=== PATIENT | male | born 1970 | race Hispanic/Latino ===

== ENCOUNTER 2017-12-04 04:14 | Inpatient (IN) | payer OTHER, SELFPAY ==
[2017-12-04] MEDS ORDERED: Fentanyl 100 MCG/2 ML VIAL ONE ×4 (04:20→11:27)
[2017-12-04] MEDS ORDERED: Ondansetron HCl/PF 4 MG/2 ML Vial ONE ×3 (04:20→13:23)
[2017-12-04] MEDS ORDERED: Adacel (T-DAP) 0.5 ML VIAL ONE (04:27)
[2017-12-04] MEDS ORDERED: CEFAZOLIN/Water 2 GM/20 ML SYRINGE SLOW IVP SCH ×2 (04:30→08:15)
[2017-12-04 04:50] LABS: Prothrombin Time 13.6 SEC (12.0-14.7)
[2017-12-04 04:55] LABS: Hemoglobin 14.4 g/dL (14.0-18.0); Mean Corpuscular HGB CONC 34.6 g/dL (32.0-36.0); Mean Corpuscular Hemoglobin 31.4 pg (27.0-31.0); Mean Corpuscular Volume 90.8 fL (78.0-98.0); Mean Platelet Volume 8.5 fL (7.4-10.4); Platelet Count 224 thou/uL (130-400); RBC Distribution Width 11.7 % (11.5-14.5); White Blood Cell (WBC) Count 35.8 thou/uL (4.8-10.8)
[2017-12-04 04:58] LABS: ALT (SGPT) 67 U/L (8-55); AST (SGOT) 81 U/L (5-34); Alcohol Less than 10 mg/dL (Less than 10); Alkaline Phosphatase 98 U/L (40-150); Anion Gap 15 mmol/L (10-20); BUN (Urea Nitrogen) 20 mg/dL (8.9-20.6); Bilirubin, Total 0.6 mg/dL (0.2-1.2); Calc. Creatinine Clearance 0 mL/min (70-130); Calcium 8.4 mg/dL (7.8-10.44); Carbon Dioxide 21 mmol/L (22-29); Chloride 103 mmol/L (98-107); Estimated GFR-MDRD 59; Globulin 2.9 g/dL (2.4-3.5); Glucose 156 mg/dL (70-105); Lipase 118 U/L (8-78); Potassium 3.4 mmol/L (3.5-5.1); Protein, Total 6.9 g/dL (6.0-8.3); Sodium 136 mmol/L (136-145)
[2017-12-04 05:14] LABS: PTT 22.2 SEC (22.9-36.1)
[2017-12-04] MEDS ORDERED: Ondansetron HCl/PF 4 MG/2 ML Vial IVP PRN ×2 (05:15→11:58)
[2017-12-04] MEDS ORDERED: diphenhydrAMINE 50 MG/ML VIAL IVP PRN (05:15)
[2017-12-04] MEDS ORDERED: diphenhydrAMINE 50 MG/ML VIAL IM PRN (05:15)
[2017-12-04] MEDS ORDERED: Communication Order-Pharmacy FS SCH (05:15)
[2017-12-04] MEDS ORDERED: Naloxone HCl 0.4 mg/ml Vial IV PRN (05:15)
[2017-12-04] MEDS ORDERED: Promethazine HCl 25 MG/ML VIAL IM PRN ×2 (05:15→11:58)
[2017-12-04] MEDS ORDERED: Dextrose 50% Abboject 50 ML SYRINGE SLOW IVP PRN (05:16)
[2017-12-04] MEDS ORDERED: Dextrose 5% in Water 1,000 ML IV PRN (05:16)
[2017-12-04 05:24] LABS: Band 25 % (5-11); Elliptocytes SLIGHT = 2-5 cells (100X) (0-1/hpf); Lymphocytes 11 % (21-51); MDiff Complete? YES; Metamyelocyte 1 % (0-0); Monocytes 3 % (0-10); Myelocyte 1 % (0-0); Neutrophil 59 % (42-75); PLT Morphology Comment Appears Adequate
[2017-12-04 06:02] LABS: Bilirubin Negative (Negative); Blood, Urine Large (Negative); Clarity CLEAR (Clear); Glucose, Urine (Dipstick) Negative (Negative); Leukocyte Negative (Negative); Nitrite Negative (Negative); Protein, Urine (Dipstick) 30 mg/dL (Neg-Trace); Urobilinogen 0.2 mg/dL (0.2-1.0)
[2017-12-04 06:04] LABS: Bacteria/HPF None Seen HPF (None Seen); Hyaline Casts/LPF 4-6 HYALINE CAST LPF (0-3 Hyaline); Pathc Cast-AUWi Flag 0.58 (0-2.49); RBC/HPF GREATER THAN 50-TNTC HPF (0-3)
[2017-12-04 06:07] LABS: Oval Fat Bodies/HPF None Seen HPF (None Seen); Renal Epithelial 0-3 HPF (0-3); Specific Gravity, Urine 1.052 (1.002-1.036); Sperm/HPF None Seen HPF (None Seen); Transitional Epithelial 0-3 HPF (0-3); Trichomonas/HPF None Seen HPF (None Seen); Yeast-All Forms None Seen HPF (None Seen)
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
[2017-12-04] MEDS: Ketorolac Tromethamine 30 MG/ML VIAL IVP SCH ×3 (07:16→17:45)
[2017-12-04 08:32] VITALS: BMI 30.7
[2017-12-04] MEDS ORDERED: CEFAZOLIN/Water 2 GM/20 ML SYRINGE ONE (09:00)
[2017-12-04] MEDS ORDERED: Midazolam HCl 2 mg/2 ml Vial ONE (09:05)
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
--- NOTE | 2017-12-04 09:52 | RAD ---
LEFT FOOT 3 VIEWS: HISTORY: Injury, left foot pain. FINDINGS/IMPRESSION: There is a fracture involving the shaft of the proximal phalanx of the 5th digit/little toe without s ignificant displacement. Also noted is a fracture of the medial malleolus. POS: [facility]
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
[2017-12-04] MEDS ORDERED: Promethazine HCl 25 MG/ML VIAL SLOW IVP PRN (11:58)
[2017-12-04] MEDS ORDERED: HYDROcodone/Acetaminophen 10/325 mg Tablet PO PRN ×2 (12:00)
[2017-12-04] MEDS ORDERED: PROPOFOL 200 MG/20 ML VIAL ONE (13:23)
[2017-12-04] MEDS ORDERED: Glycopyrrolate 0.2 MG/ML 5 ML SYRINGE ONE (13:23)
[2017-12-04] MEDS ORDERED: Vecuronium 10 MG VIAL ONE (13:23)
[2017-12-04] MEDS ORDERED: Lidocaine 1% PF 5 ML VIAL ONE (13:23)
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
[2017-12-04] MEDS ORDERED: ISOVUE-370 76%-LOCM 1 ML ONE (14:54)
--- NOTE | 2017-12-04 15:10 | OP ---
PREOPERATIVE DIAGNOSES: Closed intercondylar and supracondylar femur fracture, open incomplete tibia fracture, closed medial malleolus fracture, all on the left. PROCEDURE: Irrigation and debridement of open tibia fracture on the left, open reduction and interna l fixation of left supracondylar and intercondylar femur using a Synthes variable angle locking plate 10-hole and ORIF of the medial malleolus also on the left side. SURGEON: Wes Mandel M.D. PRODUCTION REPAIRER: Jack Blank PA-C. BLOOD LOSS: About 400. SPECIMENS: None. DRAINS: None. COMPLICATIONS: None. PROCEDURE IN DETAIL: The patient was taken to the operating room where general anesthesia induced. The left leg was prepped and draped in usual sterile fashion from the hip through the toes to approac h the open fracture first, it appeared to be an outside in penetration which would disrupted the evelia ex of the tibia. Tibia was cleaned with curets. I debrided skin and subcutaneous tissue sharply wit h a knife. This was left open with plans for wound VAC and secondary closure. I made a lateral appr oach to the femur. The joint was exposed. I irrigated the joint and the fracture. The fracture spl it the condyle and comminuted the lateral condyle. The lateral condyle was repaired using headless s crews and the condyles were reduced together and fixed using a single 7.3 mm cannulated cancellous sc rew. I then applied a 10-hole lateral plate. The middle comminution was so severe. There was reall y no way fragments together, so I span the fracture. I placed 5 cortical screws above the frac ture and 5 locking screws in the articular fragment. Pulsatile lavage was performed. Fascia was rep aired with a #2 Stratafix . Skin was closed with johnathan. Attention was turned to the medial m alleolus where small incisions were made. Two guide pins were placed across the fracture. Fracture was repaired with 4-0 Synthes cannulated screws with anatomic reduction and good compression. Irriga tion performed. Skin was closed with johnathan. Sterile dressings applied. The patient was placed in knee immobilizer. Postoperative plans are for IV antibiotics. A knee immobilizer will be nonweightbearing on the left side for at least 3 months, wound VAC for the left tibia.
[2017-12-04] MEDS: Lactated Ringer's 1,000 ML IV SCH ×2 (17:35→17:46)
--- NOTE | 2017-12-04 21:05 | RAD ---
INTRAOPERATIVE IMAGING OF THE LEFT KNEE 12/04/17 HISTORY: Distal femur fracture. FINDINGS: A markedly comminuted distal femur fracture is treated with a lateral screw and plate fixation. There is near anatomic alignment at the fracture site. IMPRESSION: ORIF as above. POS: [facility]
--- NOTE | 2017-12-04 21:09 | RAD ---
LEFT ANKLE TWO VIEWS: 12/04/17 HISTORY: Medial malleolar fracture. FINDINGS/IMPRESSION: There has been interval reduction and internal fixation of the medial malleolar fracture seen on the exam of 4:54 a.m. from the same date. POS: [facility]
[2017-12-05] MEDS: Ketorolac Tromethamine 30 MG/ML VIAL IVP SCH ×5 (00:27→23:19)
[2017-12-05 08:16] LABS: #Lymphocytes 2.8 thou/uL (1.20-3.40); #Monocytes 1.5 thou/uL (0.11-0.59); #Neutrophils 8.1 thou/uL (1.40-6.50); %Basophils 0.2 % (0.0-1.0); %Eosinophils 0.2 % (0.0-10.0); %Lymphocytes 22.2 % (21.0-51.0); %Monocytes 12.3 % (0.0-10.0); %Neutrophils 65.1 % (42.0-75.0); Mean Corpuscular HGB CONC 34.2 g/dL (32.0-36.0); Mean Corpuscular Hemoglobin 31.3 pg (27.0-31.0); Mean Corpuscular Volume 91.6 fL (78.0-98.0); Mean Platelet Volume 8.6 fL (7.4-10.4); Platelet Count 132 thou/uL (130-400); RBC Distribution Width 11.7 % (11.5-14.5); Red Blood Cell (RBC) Count 2.55 mill/uL (4.70-6.10); White Blood Cell (WBC) Count 12.4 thou/uL (4.8-10.8)
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
[2017-12-05] MEDS ORDERED: CEFAZOLIN/Water 2 GM/20 ML SYRINGE SLOW IVP SCH (17:15)
[2017-12-05] MEDS: Lactated Ringer's 1,000 ML IV SCH ×2 (18:29→23:24)
[2017-12-05 18:37] LABS: Hemoglobin 7.1 g/dL (14.0-18.0); Platelet Count 116 thou/uL (130-400)
[2017-12-05] MEDS: HYDROmorphone 10 mg/100 ml CADD IVPB PRN (19:34)
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
[2017-12-06 05:36] LABS: #Lymphocytes 2.2 thou/uL (1.20-3.40); #Monocytes 1.1 thou/uL (0.11-0.59); #Neutrophils 7.3 thou/uL (1.40-6.50); %Eosinophils 0.2 % (0.0-10.0); %Lymphocytes 20.3 % (21.0-51.0); %Monocytes 10.1 % (0.0-10.0); %Neutrophils 69.4 % (42.0-75.0); Mean Corpuscular HGB CONC 35.5 g/dL (32.0-36.0); Mean Corpuscular Hemoglobin 32.4 pg (27.0-31.0); Mean Corpuscular Volume 91.3 fL (78.0-98.0); Mean Platelet Volume 8.5 fL (7.4-10.4); Platelet Count 109 thou/uL (130-400); RBC Distribution Width 11.5 % (11.5-14.5); Red Blood Cell (RBC) Count 2.46 mill/uL (4.70-6.10); White Blood Cell (WBC) Count 10.6 thou/uL (4.8-10.8)
[2017-12-06 05:44] LABS: Anion Gap 7 mmol/L (10-20); BUN (Urea Nitrogen) 12 mg/dL (8.9-20.6); Calc. Creatinine Clearance 160 mL/min (70-130); Calcium 7.7 mg/dL (7.8-10.44); Carbon Dioxide 23 mmol/L (22-29); Chloride 109 mmol/L (98-107); Estimated GFR-MDRD Greater than 90; Glucose 111 mg/dL (70-105); Potassium 3.9 mmol/L (3.5-5.1); Sodium 135 mmol/L (136-145)
[2017-12-06 05:48] LABS: Phosphorus 1.2 mg/dL (2.3-4.7)
[2017-12-06] MEDS: Ketorolac Tromethamine 30 MG/ML VIAL IVP SCH (06:02)
[2017-12-06] MEDS ORDERED: Potassium Phosphate 30 MMOL in Sodium Chloride 0.9% 500 ML IVPB SCH (06:30)
[2017-12-06] MEDS ORDERED: Fentanyl 100 MCG/2 ML VIAL ONE ×4 (09:18→11:26)
[2017-12-06] MEDS ORDERED: CEFAZOLIN/Water 2 GM/20 ML SYRINGE ONE (09:23)
[2017-12-06] MEDS ORDERED: Promethazine HCl 25 MG/ML VIAL IM PRN (10:54)
[2017-12-06] MEDS ORDERED: Promethazine HCl 25 MG/ML VIAL SLOW IVP PRN (10:54)
[2017-12-06] MEDS ORDERED: Ondansetron HCl/PF 4 MG/2 ML Vial IVP PRN (10:54)
--- NOTE | 2017-12-06 11:10 | OP ---
PREOPERATIVE DIAGNOSIS: A spiral fracture, right tibia. POSTOPERATIVE DIAGNOSIS: A spiral fracture, right tibia. SURGEON: Wes Mandel M.D. MANAGER HIGHWAY: Jack Blank PA-C. BLOOD LOSS: Minimal. SPECIMEN: None. DRAINS: None. COMPLICATIONS: None. TOURNIQUET: Not used. DESCRIPTION OF PROCEDURE: The patient was taken to the operating room where general anesthesia was i nduced. He received Ancef preoperatively. Right leg was prepped and draped in the usual sterile fas hion. I have made an incision over the proximal tibia. Dissection was carried down and the proximal tibia was exposed. The fracture was reduced. Provisionally, I confirmed that I could reduce the fr acture closed. I then placed a guide pin just anterior to the lateral tibial eminence and checked a biplane fluoroscopy. I drilled the opening drill for the Synthes nail. I then passed a ball-tip celso de arnold across the fracture. While my dental front office assistant reamed, I held the fracture reduced. We reamed to si ze 10 mm. I selected a 9 mm Synthes tibial nail. The nail was introduced across the fracture withou t difficulty. Proximal and distal locking screws were placed in the usual fashion. X-ray showed exc ellent alignment. Irrigation was performed. Hemostasis was obtained. Deep layer closed with #1 Main ryl, subcu closed with 2-0 Vicryl, and the skin was closed with johnathan. Sterile dressings applied.
[2017-12-06] MEDS ORDERED: Ondansetron HCl/PF 4 MG/2 ML Vial ONE (11:56)
[2017-12-06] MEDS ORDERED: Lidocaine 1% PF 5 ML VIAL ONE (11:56)
[2017-12-06] MEDS ORDERED: Glycopyrrolate 0.2 MG/ML 5 ML SYRINGE ONE (11:56)
[2017-12-06] MEDS ORDERED: PROPOFOL 200 MG/20 ML VIAL ONE (11:56)
[2017-12-06] MEDS ORDERED: Ketorolac Tromethamine 30 MG/ML VIAL IVP SCH (12:30)
[2017-12-06] MEDS ORDERED: Ketorolac Tromethamine 30 MG/ML VIAL ONE (12:39)
[2017-12-06] MEDS: HYDROmorphone 10 mg/100 ml CADD IVPB PRN (12:58)
[2017-12-06 13:05] LABS: Hemoglobin 8.7 g/dL (14.0-18.0); Platelet Count 112 thou/uL (130-400)
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
[2017-12-06] MEDS: Lactated Ringer's 1,000 ML IV SCH (15:30)
--- NOTE | 2017-12-06 17:12 | RAD ---
RIGHT LEG TWO VIEWS: 12/06/17 HISTORY: Fracture of the right tibia and fibula. FINDINGS/IMPRESSION: Six spot fluoroscopic intraoperative images of the right leg demonstrates interval reduction and inte rnal fixation of the tibial shaft fracture with intramedullary arnold and interlocking screws. The fibular fracture has been reduced without internal fixation since the previous days exam. POS: [facility]
[2017-12-07] MEDS: Lactated Ringer's 1,000 ML IV SCH ×2 (03:15→17:05)
[2017-12-07 06:41] LABS: #Basophils 0.1 thou/uL (0.0-0.2); #Eosinphils 0.1 thou/uL (0.0-0.7); #Lymphocytes 2.2 thou/uL (1.20-3.40); #Neutrophils 8.8 thou/uL (1.40-6.50); %Basophils 0.5 % (0.0-1.0); %Eosinophils 0.5 % (0.0-10.0); %Lymphocytes 18.3 % (21.0-51.0); %Monocytes 7.9 % (0.0-10.0); %Neutrophils 72.7 % (42.0-75.0); Hemoglobin 7.6 g/dL (14.0-18.0); Mean Corpuscular HGB CONC 34.4 g/dL (32.0-36.0); Mean Corpuscular Hemoglobin 31.8 pg (27.0-31.0); Mean Corpuscular Volume 92.4 fL (78.0-98.0); Mean Platelet Volume 9.6 fL (7.4-10.4); Platelet Count 118 thou/uL (130-400); RBC Distribution Width 11.6 % (11.5-14.5); Red Blood Cell (RBC) Count 2.39 mill/uL (4.70-6.10)
[2017-12-07 06:58] LABS: Hypochromia SLIGHT = 6-15 cells (100X) (0-5/hpf); Lymphocytes 18 % (21-51); MDiff Complete? YES; Monocytes 5 % (0-10); Neutrophil 77 % (42-75); PLT Morphology Comment Appears Decreased
[2017-12-07 08:55] LABS: Reticulocyte Count 3.7 % (0.5-1.5)
[2017-12-07] MEDS ORDERED: Enoxaparin Sodium 40 MG/0.4 ML SYRINGE SC SCH (09:00)
[2017-12-07] MEDS ORDERED: Polyethylene Glycol 3350 17 GM Packet PO SCH (09:00)
[2017-12-07] MEDS ORDERED: Senokot S 8.6-50 MG TAB PO SCH (09:00)
[2017-12-07] MEDS: Enoxaparin Sodium 30 MG/0.3 ML SYRINGE SC SCH ×2 (09:04→20:21)
[2017-12-07] MEDS: HYDROcodone/Acetaminophen 10/325 mg Tablet PO SCH ×4 (09:04→21:34)
[2017-12-07] MEDS: Polyethylene Glycol 3350 17 GM Packet PO SCH (09:05)
[2017-12-07] MEDS: Senokot 8.6 MG TAB PO SCH ×2 (09:05→20:18)
--- NOTE | 2017-12-07 09:59 | RAD ---
CHEST ONE VIEW: History: Fever. Comparison: 12-04-17 FINDINGS: Cardiac silhouette is magnified by projection. Pulmonary vasculature unremarkable. Mediastinum is mid line. Patchy areas of parenchymal opacity are present at each lung base on the current exam. No evide nce of pneumothorax. IMPRESSION: Mild bibasilar infiltrates. Atelectasis versus inflammation. Clinical correlation regarding other sig ns and symptoms of bibasilar pneumonitis is required. Continued radiographic follow up is suggested. POS: [facility]
--- NOTE | 2017-12-07 13:25 | ULT ---
ULTRASOUND WITH DOPPLER DUPLEX VENOUS LOWER EXTREMITIES BILATERAL: HISTORY: 47-year-old male with bilateral lower extremity swelling. TECHNIQUE: Color flow Doppler, spectral waveform analysis of pulsed Doppler, and valencia-scale imaging with miguel rosa and augmentation, were used to evaluate the bilateral common femoral, femoral, popliteal, ems educator ior tibial, and superficial femoral, veins; and the proximal portions of the profunda femoral and gre ater saphenous, veins. FINDINGS: The presence of hard cast and bandages in the bilateral lower extremities obscures much of the deep v eins of the bilateral lower extremities. The bilateral popliteal veins and bilateral posterior tibial veins, cannot be accessed for visualization. The distal portion of the left femoral vein cannot be a ccessed. There is no DVT in the bilateral common femoral veins, greater saphenous veins, profunda femoral vein s, right femoral vein, or the proximal and mid portions of the left femoral vein. There is increased pulsatility of the venous waveforms in the interrogated vessels. This is typically due to increased cardiac transmission, suggestive of congestive heart failure, but the chest radiogr aph obtained earlier today is not consistent with congestive heart failure. IMPRESSION: 1. No evidence of deep venous thrombosis in the bilateral thighs. 2. Distal to that, the bilateral knees and legs cannot be evaluated because of the presence of casts and bandages. KENYATTA Knowles POS: [facility]
--- NOTE | 2017-12-07 14:12 | ULT ---
ABDOMEN ULTRASOUND: HISTORY: Anemia. COMPARISON: None. TECHNIQUE: Utilizing a multihertz transducer, sonographic imaging of the abdomen is performed in the longitudina l and transverse plane. FINDINGS: Suboptimal evaluation of the pancreas. Visualized aorta is unremarkable. The gallbladder is surgically absent. Common bile duct diameter is difficult to appreciate. Possibl e common hepatic duct measures 0.3 cm. Main portal vein is patent. Appropriate directional flow. Suboptimal evaluation of the IVC. Increased echogenicity of the liver may be hepatic steatosis or hepatocellular disease. Subsequent e valuation for hepatic masses and intrahepatic biliary dilatation is limited. Right hepatic lobe eliecer ures 17.2 cm. Bilaterally, no hydronephrosis. The right kidney measures 9.8 x 6.5 x 6.9 cm. The left kidney measu res 10.3 x 5.9 x 5.5 cm. Spleen measures 10.6 cm. IMPRESSION: 1. Limited evaluation. Bowel gas obscures many of the structures. Increased echogenicity of the li finesse may be due to hepatic steatosis or hepatocellular disease. Correlate clinically. 2. Surgically absent gallbladder is reported. POS: [facility]
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
[2017-12-07] MEDS: Ascorbic Acid 500 mg Chewable Tablet PO SCH (18:09)
[2017-12-07] MEDS: Ferrous Sulfate 325 MG TAB PO SCH (18:09)
[2017-12-08] MEDS: HYDROcodone/Acetaminophen 10/325 mg Tablet PO SCH ×6 (01:17→21:14)
[2017-12-08] MEDS: Lactated Ringer's 1,000 ML IV SCH (05:09)
[2017-12-08 06:33] LABS: Hemoglobin 7.6 g/dL (14.0-18.0); Mean Corpuscular HGB CONC 35.5 g/dL (32.0-36.0); Mean Corpuscular Hemoglobin 32.8 pg (27.0-31.0); Mean Corpuscular Volume 92.2 fL (78.0-98.0); Mean Platelet Volume 8.5 fL (7.4-10.4); Platelet Count 181 thou/uL (130-400); RBC Distribution Width 11.4 % (11.5-14.5); Red Blood Cell (RBC) Count 2.33 mill/uL (4.70-6.10); White Blood Cell (WBC) Count 12.3 thou/uL (4.8-10.8)
[2017-12-08] MEDS: Ascorbic Acid 500 mg Chewable Tablet PO SCH ×2 (06:33→16:09)
[2017-12-08] MEDS: Ferrous Sulfate 325 MG TAB PO SCH ×2 (06:33→16:09)
[2017-12-08 06:43] LABS: Band 8 % (5-11); Eosinophils 1 % (0-10); Lymphocytes 16 % (21-51); MDiff Complete? YES; Monocytes 4 % (0-10); Neutrophil 71 % (42-75); PLT Morphology Comment Appears Adequate
[2017-12-08] MEDS: Polyethylene Glycol 3350 17 GM Packet PO SCH (08:43)
[2017-12-08] MEDS: Docusate 100 MG CAP PO SCH (08:44)
[2017-12-08] MEDS: Senokot 8.6 MG TAB PO SCH ×3 (08:44→20:10)
[2017-12-08] MEDS: Enoxaparin Sodium 30 MG/0.3 ML SYRINGE SC SCH ×2 (08:44→21:15)
[2017-12-08] MEDS ORDERED: cloNIDine 0.1 MG TAB PO SCH ×2 (09:15→10:00)
[2017-12-08] MEDS ORDERED: Ibuprofen 800 MG TAB PO SCH (09:30)
[2017-12-08] MEDS: diphenhydrAMINE 25 MG CAP PO PRN (13:36)
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
[2017-12-08] MEDS ORDERED: Bisacodyl 10 MG SUPP PR SCH ×2 (14:00→18:00)
[2017-12-08] MEDS: Ibuprofen 800 MG TAB PO SCH ×2 (14:10→21:14)
[2017-12-08] MEDS ORDERED: Gabapentin 300 MG CAP PO SCH (15:00)
[2017-12-08] MEDS: Gabapentin 300 MG CAP PO SCH ×2 (16:09→21:14)
[2017-12-08] MEDS: cloNIDine 0.1 MG TAB PO SCH (17:30)
[2017-12-09] MEDS: cloNIDine 0.1 MG TAB PO SCH ×4 (00:56→17:56)
[2017-12-09] MEDS: HYDROcodone/Acetaminophen 10/325 mg Tablet PO SCH ×6 (00:56→20:40)
[2017-12-09] MEDS: Ibuprofen 800 MG TAB PO SCH ×3 (05:20→22:00)
[2017-12-09] MEDS: Ascorbic Acid 500 mg Chewable Tablet PO SCH ×2 (06:35→15:03)
[2017-12-09] MEDS: Ferrous Sulfate 325 MG TAB PO SCH ×2 (06:35→15:03)
[2017-12-09] MEDS: Polyethylene Glycol 3350 17 GM Packet PO SCH (08:47)
[2017-12-09] MEDS: Gabapentin 300 MG CAP PO SCH ×3 (08:47→20:39)
[2017-12-09] MEDS: Docusate 100 MG CAP PO SCH (08:48)
[2017-12-09] MEDS: Enoxaparin Sodium 30 MG/0.3 ML SYRINGE SC SCH ×2 (08:48→20:39)
[2017-12-09] MEDS: Senokot 8.6 MG TAB PO SCH ×3 (08:48→20:40)
[2017-12-09] MEDS: Bisacodyl 10 MG SUPP PR SCH (08:49)
[2017-12-09] MEDS ORDERED: Bisacodyl 10 MG SUPP PR SCH (09:00)
[2017-12-09] MEDS ORDERED: HYDROcodone/Acetaminophen 10/325 mg Tablet PO PRN (09:10)
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
[2017-12-09] MEDS: diphenhydrAMINE 25 MG CAP PO PRN (16:34)
[2017-12-10] MEDS: cloNIDine 0.1 MG TAB PO SCH ×5 (00:54→23:28)
[2017-12-10] MEDS: HYDROcodone/Acetaminophen 10/325 mg Tablet PO SCH ×6 (00:55→20:58)
[2017-12-10] MEDS: Ibuprofen 800 MG TAB PO SCH (05:07)
[2017-12-10] MEDS: Ascorbic Acid 500 mg Chewable Tablet PO SCH ×2 (06:29→16:30)
[2017-12-10] MEDS: Ferrous Sulfate 325 MG TAB PO SCH ×2 (06:29→16:30)
[2017-12-10 07:57] LABS: Hemoglobin 6.9 g/dL (14.0-18.0)
[2017-12-10] MEDS ORDERED: ISOVUE-370 76%-LOCM 1 ML ONE (08:25)
[2017-12-10] MEDS: Senokot 8.6 MG TAB PO SCH ×3 (09:35→20:58)
[2017-12-10] MEDS: Enoxaparin Sodium 30 MG/0.3 ML SYRINGE SC SCH (09:36)
[2017-12-10] MEDS: Polyethylene Glycol 3350 17 GM Packet PO SCH (09:36)
[2017-12-10] MEDS: Docusate 100 MG CAP PO SCH (09:36)
[2017-12-10] MEDS: Gabapentin 300 MG CAP PO SCH ×3 (09:36→20:56)
[2017-12-10] MEDS: Bisacodyl 10 MG SUPP PR SCH (09:40)
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
[2017-12-10] MEDS: Pantoprazole 40 MG VIAL IVP SCH (20:56)
[2017-12-11] MEDS: HYDROcodone/Acetaminophen 10/325 mg Tablet PO SCH ×2 (00:43→04:06)
[2017-12-11 05:33] LABS: Anion Gap 13 mmol/L (10-20); BUN (Urea Nitrogen) 17 mg/dL (8.9-20.6); Calc. Creatinine Clearance 172 mL/min (70-130); Calcium 8.6 mg/dL (7.8-10.44); Carbon Dioxide 24 mmol/L (22-29); Chloride 106 mmol/L (98-107); Estimated GFR-MDRD Greater than 90; Glucose 101 mg/dL (70-105); Phosphorus 2.9 mg/dL (2.3-4.7); Potassium 4.5 mmol/L (3.5-5.1); Sodium 138 mmol/L (136-145)
[2017-12-11] MEDS: Ascorbic Acid 500 mg Chewable Tablet PO SCH ×2 (05:52→16:30)
[2017-12-11] MEDS: cloNIDine 0.1 MG TAB PO SCH (05:53)
[2017-12-11] MEDS: Ferrous Sulfate 325 MG TAB PO SCH ×2 (05:53→16:30)
[2017-12-11 06:20] LABS: Band 15 % (5-11); Eosinophils 1 % (0-10); Hemoglobin 9.7 g/dL (14.0-18.0); Lymphocytes 13 % (21-51); MDiff Complete? YES; Mean Corpuscular HGB CONC 33.3 g/dL (32.0-36.0); Mean Corpuscular Hemoglobin 29.9 pg (27.0-31.0); Mean Corpuscular Volume 89.9 fL (78.0-98.0); Mean Platelet Volume 7.8 fL (7.4-10.4); Monocytes 6 % (0-10); Neutrophil 65 % (42-75); PLT Morphology Comment Appears Adequate; Platelet Count 359 thou/uL (130-400); Polychromasia SLIGHT = 2-3 cells (100X) (0-2/hpf); RBC Distribution Width 13.9 % (11.5-14.5); Red Blood Cell (RBC) Count 3.23 mill/uL (4.70-6.10); White Blood Cell (WBC) Count 14.6 thou/uL (4.8-10.8)
[2017-12-11] MEDS: Acetaminophen 500 MG TAB PO SCH ×3 (08:49→20:02)
[2017-12-11] MEDS: traMADol HCl 50 MG TAB PO SCH ×3 (08:50→20:01)
[2017-12-11] MEDS: Gabapentin 300 MG CAP PO SCH ×3 (08:50→20:01)
[2017-12-11] MEDS: Pantoprazole 40 MG VIAL IVP SCH ×2 (08:51→20:01)
[2017-12-11] MEDS: Bisacodyl 10 MG SUPP PR SCH (08:55)
[2017-12-11] MEDS: Senokot 8.6 MG TAB PO SCH ×3 (08:56→20:06)
[2017-12-11] MEDS: Polyethylene Glycol 3350 17 GM Packet PO SCH (08:56)
[2017-12-11] MEDS: Docusate 100 MG CAP PO SCH (08:56)
[2017-12-11] MEDS: Enoxaparin Sodium 30 MG/0.3 ML SYRINGE SC SCH ×2 (10:05→20:01)
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
[2017-12-12] MEDS: traMADol HCl 50 MG TAB PO SCH ×4 (02:35→20:18)
[2017-12-12] MEDS: Acetaminophen 500 MG TAB PO SCH ×4 (02:36→20:17)
[2017-12-12] MEDS: Ascorbic Acid 500 mg Chewable Tablet PO SCH ×2 (06:14→16:03)
[2017-12-12] MEDS: Ferrous Sulfate 325 MG TAB PO SCH ×2 (06:14→16:03)
[2017-12-12 06:46] LABS: #Eosinphils 0.6 thou/uL (0.0-0.7); #Lymphocytes 2.7 thou/uL (1.20-3.40); #Monocytes 1.5 thou/uL (0.11-0.59); #Neutrophils 10.1 thou/uL (1.40-6.50); %Basophils 0.1 % (0.0-1.0); %Eosinophils 4.1 % (0.0-10.0); %Lymphocytes 17.9 % (21.0-51.0); %Neutrophils 67.9 % (42.0-75.0); Anisocytosis SLIGHT = 6-15 cells (100X) (0-5/hpf); Hemoglobin 9.8 g/dL (14.0-18.0); MDiff Complete? YES; Mean Corpuscular HGB CONC 33.2 g/dL (32.0-36.0); Mean Corpuscular Hemoglobin 29.7 pg (27.0-31.0); Mean Corpuscular Volume 89.3 fL (78.0-98.0); Mean Platelet Volume 7.2 fL (7.4-10.4); Platelet Count 433 thou/uL (130-400); Polychromasia SLIGHT = 2-3 cells (100X) (0-2/hpf); RBC Distribution Width 13.6 % (11.5-14.5); White Blood Cell (WBC) Count 14.9 thou/uL (4.8-10.8)
[2017-12-12] MEDS: Polyethylene Glycol 3350 17 GM Packet PO SCH (08:20)
[2017-12-12] MEDS: Enoxaparin Sodium 30 MG/0.3 ML SYRINGE SC SCH ×2 (08:21→20:18)
[2017-12-12] MEDS: Docusate 100 MG CAP PO SCH (08:21)
[2017-12-12] MEDS: Senokot 8.6 MG TAB PO SCH ×3 (08:21→20:17)
[2017-12-12] MEDS: Bisacodyl 10 MG SUPP PR SCH (08:22)
[2017-12-12] MEDS: Pantoprazole 40 MG VIAL IVP SCH ×2 (08:22→20:18)
[2017-12-12] MEDS: Gabapentin 300 MG CAP PO SCH ×3 (08:22→20:17)
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
[2017-12-12] MEDS: traMADol HCl 50 MG TAB PO PRN (23:15)
[2017-12-13] MEDS: traMADol HCl 50 MG TAB PO SCH ×4 (01:48→21:32)
[2017-12-13] MEDS: Acetaminophen 500 MG TAB PO SCH ×4 (01:48→21:31)
[2017-12-13] MEDS ORDERED: Magnesium Citrate 300 ML BOT PO SCH (08:00)
[2017-12-13] MEDS: Pantoprazole 40 MG VIAL IVP SCH ×2 (08:43→21:31)
[2017-12-13] MEDS: Enoxaparin Sodium 30 MG/0.3 ML SYRINGE SC SCH ×2 (08:43→21:31)
[2017-12-13] MEDS: Gabapentin 300 MG CAP PO SCH ×3 (08:45→21:31)
[2017-12-13] MEDS: Ferrous Sulfate 325 MG TAB PO SCH ×2 (08:46→16:40)
[2017-12-13] MEDS: Ascorbic Acid 500 mg Chewable Tablet PO SCH ×2 (08:46→16:40)
[2017-12-13] MEDS: Docusate 100 MG CAP PO SCH (08:47)
[2017-12-13] MEDS: Polyethylene Glycol 3350 17 GM Packet PO SCH (08:47)
[2017-12-13] MEDS: Senokot 8.6 MG TAB PO SCH ×2 (08:47→21:31)
[2017-12-13] MEDS: Bisacodyl 10 MG SUPP PR SCH (08:48)
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
[2017-12-13] MEDS: traMADol HCl 50 MG TAB PO PRN (16:40)
[2017-12-14] MEDS: traMADol HCl 50 MG TAB PO SCH ×4 (03:14→20:07)
[2017-12-14] MEDS: Acetaminophen 500 MG TAB PO SCH ×4 (03:14→20:06)
[2017-12-14 06:45] LABS: Band 10 % (5-11); Eosinophils 2 % (0-10); Hemoglobin 10.3 g/dL (14.0-18.0); Lymphocytes 18 % (21-51); MDiff Complete? YES; Mean Corpuscular HGB CONC 33.5 g/dL (32.0-36.0); Mean Corpuscular Hemoglobin 30.4 pg (27.0-31.0); Mean Corpuscular Volume 90.7 fL (78.0-98.0); Mean Platelet Volume 7.2 fL (7.4-10.4); Monocytes 4 % (0-10); Neutrophil 66 % (42-75); Platelet Count 562 thou/uL (130-400); RBC Distribution Width 13.9 % (11.5-14.5)
[2017-12-14] MEDS: Ascorbic Acid 500 mg Chewable Tablet PO SCH ×2 (08:39→17:07)
[2017-12-14] MEDS: Ferrous Sulfate 325 MG TAB PO SCH ×2 (08:40→17:06)
[2017-12-14] MEDS: Enoxaparin Sodium 30 MG/0.3 ML SYRINGE SC SCH ×2 (08:50→20:10)
[2017-12-14] MEDS: Polyethylene Glycol 3350 17 GM Packet PO SCH (08:50)
[2017-12-14] MEDS: Pantoprazole 40 MG VIAL IVP SCH ×2 (08:50→20:08)
[2017-12-14] MEDS: Docusate 100 MG CAP PO SCH (08:51)
[2017-12-14] MEDS: Senokot 8.6 MG TAB PO SCH ×2 (08:51→20:08)
[2017-12-14] MEDS: Gabapentin 300 MG CAP PO SCH ×3 (08:57→20:06)
[2017-12-14] MEDS: CEFAZOLIN/Water 2 GM/20 ML SYRINGE SLOW IVP SCH ×4 (10:09→23:56)
[2017-12-14 11:59] LABS: Bilirubin Negative (Negative); Blood, Urine Negative (Negative); Clarity CLOUDY (Clear); Glucose, Urine (Dipstick) Negative (Negative); Leukocyte Negative (Negative); Nitrite Negative (Negative); Protein, Urine (Dipstick) Negative (Neg-Trace); Specific Gravity, Urine 1.019 (1.002-1.036)
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
[2017-12-15] MEDS: traMADol HCl 50 MG TAB PO SCH ×4 (02:42→20:21)
[2017-12-15] MEDS: Acetaminophen 500 MG TAB PO SCH ×4 (02:42→20:21)
[2017-12-15 04:31] LABS: #Eosinphils 0.4 thou/uL (0.0-0.7); #Lymphocytes 3.1 thou/uL (1.20-3.40); #Monocytes 0.9 thou/uL (0.11-0.59); #Neutrophils 12.2 thou/uL (1.40-6.50); %Basophils 0.2 % (0.0-1.0); %Eosinophils 2.6 % (0.0-10.0); %Lymphocytes 18.4 % (21.0-51.0); %Monocytes 5.2 % (0.0-10.0); %Neutrophils 73.5 % (42.0-75.0); Hemoglobin 10.2 g/dL (14.0-18.0); Mean Corpuscular HGB CONC 33.6 g/dL (32.0-36.0); Mean Corpuscular Hemoglobin 30.5 pg (27.0-31.0); Mean Corpuscular Volume 90.9 fL (78.0-98.0); Platelet Count 559 thou/uL (130-400); RBC Distribution Width 13.8 % (11.5-14.5); Red Blood Cell (RBC) Count 3.36 mill/uL (4.70-6.10); White Blood Cell (WBC) Count 16.6 thou/uL (4.8-10.8)
[2017-12-15 04:39] LABS: Anion Gap 9 mmol/L (10-20); BUN (Urea Nitrogen) 22 mg/dL (8.9-20.6); Calc. Creatinine Clearance 153 mL/min (70-130); Carbon Dioxide 27 mmol/L (22-29); Chloride 105 mmol/L (98-107); Estimated GFR-MDRD Greater than 90; Glucose 103 mg/dL (70-105); Magnesium 2.4 mg/dL (1.6-2.6); Phosphorus 3.6 mg/dL (2.3-4.7); Potassium 4.4 mmol/L (3.5-5.1); Sodium 137 mmol/L (136-145)
[2017-12-15] MEDS: Ascorbic Acid 500 mg Chewable Tablet PO SCH ×2 (06:47→16:13)
[2017-12-15] MEDS: Ferrous Sulfate 325 MG TAB PO SCH ×2 (06:47→16:13)
[2017-12-15] MEDS: Pantoprazole 40 MG VIAL IVP SCH ×2 (10:19→20:22)
[2017-12-15] MEDS: Polyethylene Glycol 3350 17 GM Packet PO SCH (10:19)
[2017-12-15] MEDS: CEFAZOLIN/Water 2 GM/20 ML SYRINGE SLOW IVP SCH ×2 (10:19→16:13)
[2017-12-15] MEDS: Docusate 100 MG CAP PO SCH (10:20)
[2017-12-15] MEDS: Senokot 8.6 MG TAB PO SCH ×2 (10:20→20:22)
[2017-12-15] MEDS: Gabapentin 300 MG CAP PO SCH ×3 (10:20→20:22)
[2017-12-15] MEDS: Enoxaparin Sodium 30 MG/0.3 ML SYRINGE SC SCH ×2 (10:20→20:22)
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
[2017-12-16] MEDS: CEFAZOLIN/Water 2 GM/20 ML SYRINGE SLOW IVP SCH ×3 (00:32→15:30)
[2017-12-16] MEDS: traMADol HCl 50 MG TAB PO SCH ×4 (01:52→21:48)
[2017-12-16] MEDS: Acetaminophen 500 MG TAB PO SCH ×4 (01:52→21:49)
[2017-12-16 05:20] LABS: #Eosinphils 0.4 thou/uL (0.0-0.7); #Lymphocytes 2.9 thou/uL (1.20-3.40); #Monocytes 0.8 thou/uL (0.11-0.59); #Neutrophils 10.3 thou/uL (1.40-6.50); %Basophils 0.3 % (0.0-1.0); %Lymphocytes 20.3 % (21.0-51.0); %Monocytes 5.3 % (0.0-10.0); %Neutrophils 71.1 % (42.0-75.0); Hemoglobin 10.5 g/dL (14.0-18.0); Mean Corpuscular HGB CONC 33.3 g/dL (32.0-36.0); Mean Corpuscular Hemoglobin 30.3 pg (27.0-31.0); Mean Platelet Volume 6.9 fL (7.4-10.4); Platelet Count 569 thou/uL (130-400); RBC Distribution Width 13.8 % (11.5-14.5); Red Blood Cell (RBC) Count 3.47 mill/uL (4.70-6.10); White Blood Cell (WBC) Count 14.4 thou/uL (4.8-10.8)
[2017-12-16 05:31] LABS: Anion Gap 10 mmol/L (10-20); BUN (Urea Nitrogen) 21 mg/dL (8.9-20.6); Calc. Creatinine Clearance 147 mL/min (70-130); Carbon Dioxide 26 mmol/L (22-29); Chloride 105 mmol/L (98-107); Estimated GFR-MDRD Greater than 90; Glucose 103 mg/dL (70-105); Magnesium 2.4 mg/dL (1.6-2.6); Phosphorus 3.7 mg/dL (2.3-4.7); Potassium 4.1 mmol/L (3.5-5.1); Sodium 137 mmol/L (136-145)
[2017-12-16] MEDS: Ascorbic Acid 500 mg Chewable Tablet PO SCH ×2 (06:55→15:29)
[2017-12-16] MEDS: Ferrous Sulfate 325 MG TAB PO SCH ×2 (06:55→15:29)
[2017-12-16] MEDS: Docusate 100 MG CAP PO SCH (08:38)
[2017-12-16] MEDS: Gabapentin 300 MG CAP PO SCH ×3 (08:39→21:49)
[2017-12-16] MEDS: Enoxaparin Sodium 30 MG/0.3 ML SYRINGE SC SCH ×2 (08:39→21:49)
[2017-12-16] MEDS: Senokot 8.6 MG TAB PO SCH ×2 (08:39→21:49)
[2017-12-16] MEDS: Polyethylene Glycol 3350 17 GM Packet PO SCH (08:39)
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
[2017-12-17] MEDS: traMADol HCl 50 MG TAB PO SCH ×4 (03:24→20:25)
[2017-12-17] MEDS: Acetaminophen 500 MG TAB PO SCH ×4 (03:25→20:24)
[2017-12-17] MEDS: Ferrous Sulfate 325 MG TAB PO SCH ×2 (07:12→17:29)
[2017-12-17] MEDS: Ascorbic Acid 500 mg Chewable Tablet PO SCH ×2 (07:12→17:29)
[2017-12-17 08:02] LABS: #Eosinphils 0.3 thou/uL (0.0-0.7); #Monocytes 0.8 thou/uL (0.11-0.59); #Neutrophils 9.1 thou/uL (1.40-6.50); %Basophils 0.3 % (0.0-1.0); %Eosinophils 2.6 % (0.0-10.0); %Lymphocytes 22.4 % (21.0-51.0); %Monocytes 6.4 % (0.0-10.0); %Neutrophils 68.3 % (42.0-75.0); Hemoglobin 10.9 g/dL (14.0-18.0); Mean Corpuscular HGB CONC 32.9 g/dL (32.0-36.0); Mean Corpuscular Hemoglobin 30.3 pg (27.0-31.0); Mean Corpuscular Volume 92.1 fL (78.0-98.0); Platelet Count 561 thou/uL (130-400); RBC Distribution Width 13.6 % (11.5-14.5); White Blood Cell (WBC) Count 13.3 thou/uL (4.8-10.8)
[2017-12-17 08:22] LABS: Anion Gap 14 mmol/L (10-20); BUN (Urea Nitrogen) 21 mg/dL (8.9-20.6); Calc. Creatinine Clearance 138 mL/min (70-130); Calcium 9.4 mg/dL (7.8-10.44); Carbon Dioxide 26 mmol/L (22-29); Chloride 104 mmol/L (98-107); Estimated GFR-MDRD Greater than 90; Glucose 93 mg/dL (70-105); Magnesium 2.1 mg/dL (1.6-2.6); Phosphorus 3.8 mg/dL (2.3-4.7); Potassium 4.5 mmol/L (3.5-5.1); Sodium 139 mmol/L (136-145)
[2017-12-17] MEDS: Gabapentin 300 MG CAP PO SCH ×3 (08:31→20:24)
[2017-12-17] MEDS: Docusate 100 MG CAP PO SCH (08:31)
[2017-12-17] MEDS: Enoxaparin Sodium 30 MG/0.3 ML SYRINGE SC SCH ×2 (08:31→20:27)
[2017-12-17] MEDS: Polyethylene Glycol 3350 17 GM Packet PO SCH (08:32)
[2017-12-17] MEDS: Senokot 8.6 MG TAB PO SCH ×2 (08:32→20:25)
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
[2017-12-18] MEDS: traMADol HCl 50 MG TAB PO SCH ×4 (02:25→20:41)
[2017-12-18] MEDS: Acetaminophen 500 MG TAB PO SCH ×4 (02:25→20:41)
[2017-12-18] MEDS: Polyethylene Glycol 3350 17 GM Packet PO SCH (07:59)
[2017-12-18] MEDS: Senokot 8.6 MG TAB PO SCH ×2 (08:00→20:40)
[2017-12-18] MEDS: Ascorbic Acid 500 mg Chewable Tablet PO SCH ×2 (08:00→17:06)
[2017-12-18] MEDS: Ferrous Sulfate 325 MG TAB PO SCH ×2 (08:00→17:06)
[2017-12-18] MEDS: Enoxaparin Sodium 30 MG/0.3 ML SYRINGE SC SCH ×2 (08:00→20:41)
[2017-12-18] MEDS: Gabapentin 300 MG CAP PO SCH ×3 (08:00→20:40)
[2017-12-18] MEDS: Docusate 100 MG CAP PO SCH (08:01)
[2017-12-18] MEDS: traMADol HCl 50 MG TAB PO PRN (10:10)
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
[2017-12-19] MEDS: Acetaminophen 500 MG TAB PO SCH ×4 (03:02→20:01)
[2017-12-19] MEDS: traMADol HCl 50 MG TAB PO SCH ×4 (03:02→20:00)
[2017-12-19] MEDS: Ascorbic Acid 500 mg Chewable Tablet PO SCH ×2 (08:21→16:18)
[2017-12-19] MEDS: Gabapentin 300 MG CAP PO SCH ×3 (08:21→20:01)
[2017-12-19] MEDS: Ferrous Sulfate 325 MG TAB PO SCH ×2 (08:23→16:17)
[2017-12-19] MEDS: Senokot 8.6 MG TAB PO SCH ×2 (08:23→20:01)
[2017-12-19] MEDS: Polyethylene Glycol 3350 17 GM Packet PO SCH (08:23)
[2017-12-19] MEDS: Enoxaparin Sodium 30 MG/0.3 ML SYRINGE SC SCH ×2 (08:23→20:02)
[2017-12-19] MEDS: Docusate 100 MG CAP PO SCH (08:23)
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
[2017-12-20] MEDS: traMADol HCl 50 MG TAB PO SCH ×4 (02:55→21:14)
[2017-12-20] MEDS: Acetaminophen 500 MG TAB PO SCH ×4 (02:55→21:15)
[2017-12-20] MEDS: Gabapentin 300 MG CAP PO SCH ×3 (08:08→21:15)
[2017-12-20] MEDS: Docusate 100 MG CAP PO SCH (08:08)
[2017-12-20] MEDS: Senokot 8.6 MG TAB PO SCH ×2 (08:08→21:15)
[2017-12-20] MEDS: Enoxaparin Sodium 30 MG/0.3 ML SYRINGE SC SCH ×2 (08:08→21:15)
[2017-12-20] MEDS: Ferrous Sulfate 325 MG TAB PO SCH ×2 (08:08→16:48)
[2017-12-20] MEDS: Ascorbic Acid 500 mg Chewable Tablet PO SCH ×2 (08:08→16:49)
[2017-12-20] MEDS: Polyethylene Glycol 3350 17 GM Packet PO SCH (08:11)
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
[2017-12-21] MEDS: Acetaminophen 500 MG TAB PO SCH ×4 (02:44→20:10)
[2017-12-21] MEDS: traMADol HCl 50 MG TAB PO SCH ×2 (02:45→08:12)
[2017-12-21] MEDS: Ferrous Sulfate 325 MG TAB PO SCH ×2 (06:39→15:08)
[2017-12-21] MEDS: Ascorbic Acid 500 mg Chewable Tablet PO SCH ×2 (06:39→15:08)
[2017-12-21] MEDS: Docusate 100 MG CAP PO SCH (08:07)
[2017-12-21] MEDS: Enoxaparin Sodium 30 MG/0.3 ML SYRINGE SC SCH ×2 (08:07→20:10)
[2017-12-21] MEDS: Gabapentin 300 MG CAP PO SCH ×3 (08:07→20:10)
[2017-12-21] MEDS: Senokot 8.6 MG TAB PO SCH ×2 (08:07→20:10)
[2017-12-21] MEDS: Polyethylene Glycol 3350 17 GM Packet PO SCH (08:08)
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
[2017-12-22] MEDS: Acetaminophen 500 MG TAB PO SCH ×3 (02:28→14:22)
[2017-12-22 04:21] VITALS: TEMP 98.2
[2017-12-22] MEDS: Ascorbic Acid 500 mg Chewable Tablet PO SCH (06:29)
[2017-12-22] MEDS: Ferrous Sulfate 325 MG TAB PO SCH (06:29)
[2017-12-22] MEDS: Enoxaparin Sodium 30 MG/0.3 ML SYRINGE SC SCH (08:38)
[2017-12-22] MEDS: Polyethylene Glycol 3350 17 GM Packet PO SCH (08:39)
[2017-12-22] MEDS: Senokot 8.6 MG TAB PO SCH (08:39)
[2017-12-22] MEDS: Gabapentin 300 MG CAP PO SCH ×2 (08:39→14:22)
[2017-12-22] MEDS: Docusate 100 MG CAP PO SCH (08:39)
[2017-12-22 11:24] VITALS: BP 114/73
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
== END 2017-12-22 16:15 | disposition home or self-care (01) | DRG 956 ==
LOC: ERS 04:14 → SURG A 06:57
PROVIDERS: ADMIT Surgery; ATTEND Surgery
PROC: 0QSC04Z Reposition Left Lower Femur with Internal Fixation Device, Open Approach (ICD-10-PCS; principal; 2017-12-04)
PROC: 0QSH04Z Reposition Left Tibia with Internal Fixation Device, Open Approach (ICD-10-PCS; 2017-12-04)
PROC: 0QSG04Z Reposition Right Tibia with Internal Fixation Device, Open Approach (ICD-10-PCS; 2017-12-06)
PROC: 30233N1 Transfusion of Nonautologous Red Blood Cells into Peripheral Vein, Percutaneous Approach (ICD-10-PCS; 2017-12-10)
DX: S72.462A Displaced supracondylar fracture with intracondylar extension of lower end of left femur, initial encounter for closed fracture (principal); S06.2X9A Diffuse traumatic brain injury with loss of consciousness of unspecified duration, initial encounter; S82.292B Other fracture of shaft of left tibia, initial encounter for open fracture type I or II; R40.2112 Coma scale, eyes open, never, at arrival to emergency department; S32.059A Unspecified fracture of fifth lumbar vertebra, initial encounter for closed fracture; S82.241A Displaced spiral fracture of shaft of right tibia, initial encounter for closed fracture; D62 Acute posthemorrhagic anemia; V43.52XA Car driver injured in collision with other type car in traffic accident, initial encounter; S82.52XA Displaced fracture of medial malleolus of left tibia, initial encounter for closed fracture; R50.82 Postprocedural fever; S92.512A Displaced fracture of proximal phalanx of left lesser toe(s), initial encounter for closed fracture
CPT/HCPCS: 36415; 36430; 51702; 70450; 71045; 71260; 72125; 72170; 74177; 76001; 76700; 80048; 80053; 80307; 81003; 81015; 82274; 83690; 83735; 84100; 85014; 85018; 85025; 85046; 85610; 85730; 86850; 86870; 86900; 86901; 86922; 90471; 90715; 93970; 94760; 96361; 96374; 96375; 99292; C1713; C1769; C9113; G0390; G8978-GP-CK; G8978-GP-CM; G8978-GP-CN; G8979-GP-CJ; G8979-GP-CK; G8987-GO-CK; G8987-GO-CL; G8988-GO-CJ; J1650; J1885; J2001; J2250; J2270; J2405; J2704; J3010; J7050; P9016